=== PATIENT | female | born 1970 | race Hispanic/Latino ===

== ENCOUNTER 2019-10-01 06:22 | Day surgery (SDC) | payer OTHER ==
[2019-09-30 14:20] VITALS: BP 134/76
[2019-09-30 14:49] LABS: BASOPHILS % (AUTO) 0.3 % (0.0-5.0); EOSINOPHILS % (AUTO) 0.8 % (0.0-8.0); HEMATOCRIT 39.1 % (36-48); LYMPHOCYTES % (AUTO) 20.9 % (21.0-51.0); MEAN CORPUSCULAR HEMOGLOBIN 25.9 pg (27.0-33.0); MEAN CORPUSCULAR HGB CONC 30.9 g/dL (32.0-36.0); MEAN CORPUSCULAR VOLUME 83.7 fL (79-99); MONOCYTES % (AUTO) 4.3 % (3.0-13.0); NEUTROPHILS % (AUTO) 73.4 % (40.0-77.0); PLATELET COUNT (AUTO) 267 K/uL (130-400); RED BLOOD CELL COUNT(AUTO) 4.67 MIL/uL (4.00-5.50); RED CELL DISTRIBUTION WIDTH 23.5 % (11.0-15.5)
[2019-10-01] VITALS (14 sets, daily range): BP systolic 103–122; BP diastolic 61–75
[~2019-10-01] VITALS: Ht 163.8 cm; Wt 62.5 kg
[~2019-10-01 06:22] MED LIST: IBUP-14 PO
[2019-10-01] MEDS ORDERED: CEFAZOLIN SODIUM 1 GM VIAL IVP SCH (06:45)
[2019-10-01] MEDS: LACTATED RINGERS 1000ML 1,000 ML IV SCH ×2 (07:05→09:15)
[2019-10-01] MEDS: CALDOLOR 800MG+NS 250ML 250 ML IV SCH ×2 (07:07→08:25)
[2019-10-01] MEDS ORDERED: FENTANYL CITRATE PF 50 MCG/1 ML 2ML VIAL ONE (07:49)
[2019-10-01] MEDS ORDERED: LIDOCAINE PF 2% 5ML ABBOJECT ONE (07:49)
[2019-10-01] MEDS ORDERED: MIDAZOLAM HCL 1 MG/ML 2ML VIAL ONE (07:50)
[2019-10-01] MEDS ORDERED: PROPOFOL 10 MG/ML 20ML VIAL IV ONE (07:50)
[2019-10-01] MEDS ORDERED: ROCURONIUM 10MG/1ML SYR 10 MG/ML ML ONE (07:50)
[2019-10-01] MEDS ORDERED: NEOSTIGMINE 5MG/5ML SYR IV ONE (08:43)
[2019-10-01] MEDS ORDERED: GLYCOPYRROLATE 1 MG/5 ML SYRINGE ONE (08:43)
[2019-10-01] MEDS ORDERED: MEPERIDINE-PF 25 MG/ML SYG ONE (08:43)
--- NOTE | 2019-10-01 10:15 | NUR ---
PATIENT BROUGHT TO DAY PATIENT ROOM 3 VIA STRETCHER FROM PACU. PATIENT [id number], RESPIRATIONS UNLABORED, VITAL SIGNS STABLE, DENIES ANY PAIN AT THIS TIME. DWIGHT PAD IN PLACE WITH VERY MINIMAL BLOOD NOTED.
--- NOTE | 2019-10-01 10:45 | NUR ---
PATIENT DISCHARGED FROM FACILITY VIA WHEELCHAIR BY PROMISE LEWIS. PATIENT ASSISTED INTO PRIVATE VEHICLE DRIVEN BY DAUGHTER.
== END 2019-10-01 10:50 | disposition home or self-care (01) ==
LOC: DAH 06:22
DX: N92.0 Excessive and frequent menstruation with regular cycle (principal); D50.0 Iron deficiency anemia secondary to blood loss (chronic); Z98.51 Tubal ligation status; Z79.899 Other long term (current) drug therapy; Z83.3 Family history of diabetes mellitus; Z80.3 Family history of malignant neoplasm of breast
CPT/HCPCS: 36415; 58353; 84703; 85025; 86850; 86900; 86901; A4215; A4216; A4221; A4222; A4223 ×3; A4606; A4663; A6260; J1741; J2001; J2250; J2704; J2710; J3010; J3490; J7120; J2175

== ENCOUNTER 2021-01-28 17:57 | Emergency (ER) | payer BC, OTHER ==
[2021-01-28] MEDS ORDERED: ONDANSETRON HCL 4 MG/2 ML VIAL ONE (18:26)
[2021-01-28 18:27] LABS: APPEARANCE,URINE Clear (CLEAR); BILIRUBIN,URINE Negative (NEGATIVE); COLOR,URINE Yellow (YELLOW); GLUCOSE, URINE (UA) Negative (NEGATIVE); KETONES,URINE >=160 mg/dL (NEGATIVE); LEUKOCYTE ESTERASE ,URINE Trace (NEGATIVE); NITRATE,URINE Negative (NEGATIVE); OCCULT BLOOD,URINE Large (NEGATIVE); PH,URINE 5.5 (5.0-8.0); PROTEIN,URINE Trace mg/dL (NEGATIVE)
[2021-01-28] MEDS ORDERED: MORPHINE SULFATE 4 MG/1ML SYG ONE (18:27)
[2021-01-28 18:31] LABS: BASOPHILS % (AUTO) 0.1 % (0.0-5.0); EOSINOPHILS % (AUTO) 0.4 % (0.0-8.0); HEMATOCRIT 40.3 % (36-48); LYMPHOCYTES % (AUTO) 7.5 % (21.0-51.0); MEAN CORPUSCULAR HEMOGLOBIN 30.6 pg (27.0-33.0); MEAN CORPUSCULAR HGB CONC 33.7 g/dL (32.0-36.0); MEAN CORPUSCULAR VOLUME 90.6 fL (79-99); MONOCYTES % (AUTO) 3.1 % (3.0-13.0); NEUTROPHILS % (AUTO) 88.4 % (40.0-77.0); PLATELET COUNT (AUTO) 207 K/uL (130-400); RED BLOOD CELL COUNT(AUTO) 4.45 MIL/uL (4.00-5.50); RED CELL DISTRIBUTION WIDTH 12.2 % (11.0-15.5); WHITE BLOOD COUNT (AUTO) 8.3 K/uL (4.8-10.8)
[2021-01-28 18:46] LABS: HCG,QUAL RESULT NEGATIVE (NEGATIVE)
[2021-01-28 18:47] LABS: CREATININE 0.7 mg/dL (0.5-1.5); POTASSIUM 3.3 mmol/L (3.5-5.1)
[2021-01-28] MEDS ORDERED: IOHEXOL-350 75 ML VIAL IV ONE (18:53)
[2021-01-28 18:56] LABS: BILIRUBIN,TOTAL 0.6 mg/dL (0.2-1.0)
[2021-01-28 18:59] LABS: BACTERIA,URINE Rare /HPF (None Seen); SQUAMOUS EPITHELIAL CELL,UR None Seen /HPF (0-2); WBC,URINE 0-1 /HPF (0-1)
[2021-01-28] MEDS ORDERED: POTASSIUM BICARB/CIT AC 25 MEQ TABLET.EFF ONE (19:20)
== END 2021-01-28 19:45 | disposition home or self-care (01) ==
LOC: EDH 17:57
DX: D25.9 Leiomyoma of uterus, unspecified (principal); N83.209 Unspecified ovarian cyst, unspecified side; E78.00 Pure hypercholesterolemia, unspecified
CPT/HCPCS: 36415; 74177; 80053; 81001; 81025; 83605; 83690; 84484; 85025; 96374; 96375; 99285; J2270; J2405; Q9967